=== PATIENT | female | born 1955 | race African-American/Black ===

== ENCOUNTER 2017-02-23 13:27 | Emergency (ER) | payer SELFPAY ==
[2017-02-23 14:38] LABS: POC GLUCOSE 91 mg/dL (70-99)
[2017-02-23 15:01] LABS: ADD MAN DIFF? NO
[2017-02-23 15:28] LABS: ANION GAP 8 (6-14); BLOOD UREA NITROGEN 15 mg/dL (7-20); BUN/CREATININE RATIO 19 (6-20); CALCIUM 9.3 mg/dL (8.5-10.1); CARBON DIOXIDE 31 mmol/L (21-32); CHLORIDE 105 mmol/L (98-107); CREATININE 0.8 mg/dL (0.6-1.0); GFR 88.2; GLUCOSE 101 mg/dL (70-99); POTASSIUM 3.5 mmol/L (3.5-5.1); SODIUM 144 mmol/L (136-145)
[2017-02-23 15:29] LABS: BASO % 1 % (0-3); EOS % 4 % (0-3); HEMATOCRIT 35.9 % (36.0-47.0); HEMOGLOBIN 11.3 g/dL (12.0-15.5); LYMPH # 2.3 x10^3/uL (1.0-4.8); LYMPH % 41 % (24-48); MEAN CORPUSCULAR HEMOGLOBIN 25 pg (25-35); MEAN CORPUSCULAR HGB CONC 32 g/dL (31-37); MEAN CORPUSCULAR VOLUME 80 fL (79-100); MONO % 8 % (0-9); NEUT % 47 % (31-73); PLATELET COUNT 340 x10^3/uL (140-400); RED BLOOD COUNT 4.49 x10^6/uL (3.50-5.40); RED CELL DISTRIBUTION WIDTH 14.4 % (11.5-14.5); WHITE BLOOD COUNT 5.7 x10^3/uL (4.0-11.0)
[2017-02-23 15:34] LABS: ALBUMIN 3.7 g/dL (3.4-5.0); ALBUMIN/GLOBULIN RATIO 0.9 (1.0-1.7); ALK PHOS 61 U/L (46-116); ALT (SGPT) 26 U/L (14-59); AST (SGOT) 29 U/L (15-37); TOTAL BILIRUBIN 0.1 mg/dL (0.2-1.0)
[2017-02-23 16:50] LABS: BILIRUBIN,URINE NEGATIVE (NEG); GLUCOSE,URINE NEGATIVE (NEG); NITRITE,URINE NEGATIVE (NEG); PH,URINE 6.5; PROTEIN,URINE NEGATIVE (NEG-TRACE)
[2017-02-23 17:02] LABS: BACTERIA,URINE MODERATE /HPF (0-FEW); RBC,URINE RARE /HPF (0-2); SQUAMOUS EPITHELIAL CELL,UR MOD /LPF; TRICHOMONAS,URINE PRESENT
[2017-02-23] MEDS: cloNIDine HCL 0.1 MG TABLET PO (17:53)
[2017-02-23] MEDS: metroNIDAZOLE 500 MG TABLET PO (17:53)
== END 2017-02-23 18:17 | disposition home or self-care (01) ==
LOC: ER 13:27
DX: I10 Essential (primary) hypertension (principal); A59.8 Trichomoniasis of other sites; M79.652 Pain in left thigh; M79.651 Pain in right thigh
CPT/HCPCS: 36415; 71020; 80053; 81001; 82962; 85025; 87086; 93005; 99285-25

== ENCOUNTER 2019-06-21 18:49 | Emergency (ER) | payer SELFPAY ==
[~2019-06-21] VITALS: Ht 162.6 cm; Wt 104.0 kg
[~2019-06-21 18:49] MED LIST: CLON0.1T PO
[2019-06-21 20:00] LABS: BASO % 1 % (0-3); EOS # 0.2 x10^3/uL (0.0-0.7); EOS % 4 % (0-3); HEMATOCRIT 39.5 % (36.0-47.0); HEMOGLOBIN 12.6 g/dL (12.0-15.5); LYMPH # 2.2 x10^3/uL (1.0-4.8); LYMPH % 38 % (24-48); MEAN CORPUSCULAR HEMOGLOBIN 26 pg (25-35); MEAN CORPUSCULAR HGB CONC 32 g/dL (31-37); MEAN CORPUSCULAR VOLUME 80 fL (79-100); MONO # 0.5 x10^3/uL (0.0-1.1); MONO % 9 % (0-9); NEUT # 2.8 x10^3/uL (1.8-7.7); NEUT % 49 % (31-73); PLATELET COUNT 326 x10^3/uL (140-400); RED BLOOD COUNT 4.93 x10^6/uL (3.50-5.40); RED CELL DISTRIBUTION WIDTH 14.2 % (11.5-14.5); WHITE BLOOD COUNT 5.8 x10^3/uL (4.0-11.0)
[2019-06-21] MEDS ORDERED: hydrALAZINE 20 MG/ML VIAL. IVP ONE ×2 (20:00→21:00)
--- NOTE | 2019-06-21 20:07 | EKG ---
[address] [place] [address] Test Date: 2019-06-21 Test Time: 19:43:50 Pat Name: JAYY MILLER Department: Room: Gender: F Legal Document Specialist: : 1955 Requested By: MELISA SALEEM Order Number: [id number] Reading MD: Brody Caldwell MD Measurements Intervals [place] Rate: 87 P: 62 AK: 182 QRS: -41 QRSD: 150 T: 138 QT: 386 QTc: 471 Interpretive Statements SINUS RHYTHM PROBABLE V-PACING Electronically Signed On 06-23-2019 13:25:00 CDT by Brody Caldwell MD
[2019-06-21 20:10] LABS: CALCIUM 9.7 mg/dL (8.5-10.1); CREATININE 0.8 mg/dL (0.6-1.0); GFR 87.7; POTASSIUM 3.6 mmol/L (3.5-5.1)
[2019-06-21 20:15] LABS: ALBUMIN 3.8 g/dL (3.4-5.0); ALBUMIN/GLOBULIN RATIO 0.8 (1.0-1.7); TOTAL BILIRUBIN 0.2 mg/dL (0.2-1.0); TOTAL PROTEIN 8.4 g/dL (6.4-8.2)
--- NOTE | 2019-06-21 20:47 | RAD ---
EXAM: CHEST 1 VIEW History: Dyspnea COMPARISON: 02/23/2017 TECHNIQUE: Single portable radiograph of the chest FINDINGS: The cardiac silhouette is unremarkable. The lungs are clear bilaterally. The costophrenic sulci are clear and well demarcated. IMPRESSION: No radiographic evidence of an acute cardiopulmonary process. Electronically signed by: Chase Burr MD (06/21/2019 8:44 PM) [id number]
--- NOTE | 2019-06-21 21:03 | PHYS DOC ---
Past Medical History Past Medical History: Hypertension Additional Past Medical Histor: FLUID RETENTION Smoking Status: Never Smoker Alcohol Use: None Drug Use: None General Adult EDM: Chief Complaint: SHORTNESS OF BREATH HPI: HPI: Patient is a 63 year old female who presents with complaint of shortness of breath for the last couple of days. Patient states that she has had numerous similar episodes in the past. She denies any cough or fever. She denies any chest pain. Patient states the shortness breath is worsened with exertion. She states that she has had no exposure to any known sick contacts. During previous similar episodes, no cause was found.[] Review of Systems: Review of Systems: Constitutional: Denies fever or chills. [] Respiratory: Denies cough but complains of shortness of breath. [] Cardiovascular: Denies chest pain or edema. [] GI: Denies abdominal pain, nausea, vomiting or diarrhea. [] Integument: Denies rash. [] Neurologic: Denies headache, focal weakness or sensory changes. [] A full 10 point review of systems has been reviewed and is otherwise negative. Heart Score: Risk Factors: Risk Factors: DM, Current or recent (<one month) smoker, HTN, HLP, family histo ry of CAD, obesity. Risk Scores: Score 0 - 3: 2.5% MACE over next 6 weeks - Discharge Home Score 4 - 6: 20.3% MACE over next 6 weeks - Admit for Clinical Observation Score 7 - 10: 72.7% MACE over next 6 weeks - Early Invasive Strategies Current Medications: Current Medications Medications (Trade) Dose Ordered Sig/Chani Start Time Stop Time Status Last Admin Dose Admin Hydralazine HCl (Apresoline Inj) 10 mg 1X ONCE 06/21/19 21:00 06/21/19 21:01 UNV Allergies: Allergies: Allergies Coded Allergies Type Severity Reaction Last Updated Verified lisinopril Allergy Unknown 02/23/17 Yes Physical Exam: PE: Constitutional: Well developed, well nourished, no acute distress, non-toxic appearance. [] HENT: Normocephalic, atraumatic, bilateral external ears normal, oropharynx moist, no oral exudates, nose normal. [] Eyes: PERRLA, EOMI, conjunctiva normal, no discharge. [] Neck: Normal range of motion, no tenderness, supple. [] Cardiovascular: Regular rate and rhythm[] Lungs & Thorax: Bilateral breath sounds clear to auscultation [] Abdomen: Bowel sounds normal, soft, no tenderness. [] Skin: Warm, dry, no erythema, no rash. [] Extremities: No tenderness, no cyanosis, no clubbing, ROM intact, no edema. [] Neurologic: Alert and oriented X 3, no focal deficits noted. [] Current Patient Data: Labs: Laboratory Tests Test 06/21/19 19:50 White Blood Count 5.8 x10^3/uL (4.0-11.0) Red Blood Count 4.93 x10^6/uL (3.50-5.40) Hemoglobin 12.6 g/dL (12.0-15.5) Hematocrit 39.5 % (36.0-47.0) Mean Corpuscular Volume 80 fL (79-100) Mean Corpuscular Hemoglobin 26 pg (25-35) Mean Corpuscular Hemoglobin Concent 32 g/dL (31-37) Red Cell Distribution Width 14.2 % (11.5-14.5) Platelet Count 326 x10^3/uL (140-400) Neutrophils (%) (Auto) 49 % (31-73) Lymphocytes (%) (Auto) 38 % (24-48) Monocytes (%) (Auto) 9 % (0-9) Eosinophils (%) (Auto) 4 % (0-3) H Basophils (%) (Auto) 1 % (0-3) Neutrophils # (Auto) 2.8 x10^3/uL (1.8-7.7) Lymphocytes # (Auto) 2.2 x10^3/uL (1.0-4.8) Monocytes # (Auto) 0.5 x10^3/uL (0.0-1.1) Eosinophils # (Auto) 0.2 x10^3/uL (0.0-0.7) Basophils # (Auto) 0.0 x10^3/uL (0.0-0.2) Sodium Level 145 mmol/L (136-145) Potassium Level 3.6 mmol/L (3.5-5.1) Chloride Level 102 mmol/L (98-107) Carbon Dioxide Level 31 mmol/L (21-32) Anion Gap 12 (6-14) Blood Urea Nitrogen 12 mg/dL (7-20) Creatinine 0.8 mg/dL (0.6-1.0) Estimated GFR (Cockcroft-Gault) 87.7 BUN/Creatinine Ratio 15 (6-20) Glucose Level 119 mg/dL (70-99) H Calcium Level 9.7 mg/dL (8.5-10.1) Total Bilirubin 0.2 mg/dL (0.2-1.0) Aspartate Amino Transferase (AST) 24 U/L (15-37) Alanine Aminotransferase (ALT) 29 U/L (14-59) Alkaline Phosphatase 62 U/L (46-116) Troponin I Quantitative < 0.017 ng/mL (0.000-0.055) UR-Giu-Y-Type Natriuretic Peptide 96 pg/mL (0-124) Total Protein 8.4 g/dL (6.4-8.2) H Albumin 3.8 g/dL (3.4-5.0) Albumin/Globulin Ratio 0.8 (1.0-1.7) L Laboratory Tests 06/21/19 19:50 Laboratory Tests 06/21/19 19:50 Vital Signs: Vital Signs Date Time Temp Pulse Resp B/P (MAP) Pulse Ox O2 Delivery O2 Flow Rate FiO2 06/21/19 20:04 81 244/114 06/21/19 19:28 98.8 16 96 Room Air 98.8 EKG: EKG: [] Radiology/Procedures: Radiology/Procedures: [] Impression: PROCEDURE: PORTABLE CHEST 1V EXAM: CHEST 1 VIEW History: Dyspnea COMPARISON: 02/23/2017 TECHNIQUE: Single portable radiograph of the chest FINDINGS: The cardiac silhouette is unremarkable. The lungs are clear bilaterally. The costophrenic sulci are clear and well demarcated. IMPRESSION: No radiographic evidence of an acute cardiopulmonary process. Electronically signed by: Chase Burr MD (06/21/2019 8:44 PM) [id number] Course & Med Decision Making: Course & Med Decision Making Pertinent Labs and Imaging studies reviewed. (See chart for details) [] Dragon Disclaimer: Dragon Disclaimer: This electronic medical record was generated, in whole or in part, using a voice recognition dictation system. Departure Departure Impression: Primary Impression: SOB (shortness of breath) Additional Impressions: Hypertension Qualified Codes: I10 - Essential (primary) hypertension Anxiety Disposition: HOME, SELF-CARE Condition: STABLE Referrals: UNKNOWN PCP NAME (PCP) Patient Instructions: Shortness of Breath Scripts Clonazepam (CLONAZEPAM ) 0.5 Mg Tablet 0.5 MG PO BID PRN for ANXIETY, #10 TAB Prov: MELISA SALEEM Jr. DO 06/21/19 Benazepril Hcl (LOTENSIN) 20 Mg Tablet 1 TAB PO DAILY for 30 Days, #30 TAB 0 Refills Prov: MELISA SALEEM Jr. DO 06/21/19 MELISA SALEEM Jr. DO Jun 21, 2019 21:03
[2019-06-21] MEDS ORDERED: BENA20TA16 PO (21:24)
[2019-06-21] MEDS ORDERED: CLON-77 PO (21:24)
[2019-06-21 21:25] VITALS: BP 177/74
== END 2019-06-21 21:44 | disposition home or self-care (01) ==
LOC: ER 18:49
DX: R06.02 Shortness of breath (principal); I10 Essential (primary) hypertension; F41.9 Anxiety disorder, unspecified; Z88.6 Allergy status to analgesic agent
CPT/HCPCS: 36415; 71045; 80053; 83880; 84484; 85025; 93005; 96374; 96376; 99285; J0360

== ENCOUNTER 2019-12-12 01:45 | Observation (INO) | payer OTHER ==
[~2019-12-12] VITALS: Ht 157.5 cm; Wt 104.5 kg
[~2019-12-12 01:45] MED LIST changes: +BENA20TA16 PO; +CLON-77 PO
--- NOTE | 2019-12-12 02:09 | PHYS DOC ---
Past Medical History Past Medical History: Hypertension Additional Past Medical Histor: FLUID RETENTION Smoking Status: Never Smoker Alcohol Use: None Drug Use: None General Adult EDM: Chief Complaint: ABDOMINAL PAIN HPI: HPI: Patient is a 64 year old female who presents with a one-day history of left flank pain. Patient began having left flank pain yesterday and has radiated to the left lower quadrant. Patient describes pain as a stabbing pain that is currently 10 out of 10. Patient states is worse with certain movements of the body. Patient had one episode of vomiting. Patient denies any fevers, chills, cough. Review of Systems: Review of Systems: Constitutional: Denies fever or chills. [] Eyes: Denies change in visual acuity. [] HENT: Denies nasal congestion or sore throat. [] Respiratory: Denies cough or shortness of breath. [] Cardiovascular: Denies chest pain or edema. [] GI: Complains of abdominal pain with nausea and vomiting. : Denies dysuria. [] Musculoskeletal: Complains of back pain but no joint pain. [] Integument: Denies rash. [] Neurologic: Complains of headache but no focal weakness or sensory changes. [] Endocrine: Denies polyuria or polydipsia. [] Lymphatic: Denies swollen glands. [] Psychiatric: Denies depression or anxiety. [] Heart Score: Risk Factors: Risk Factors: DM, Current or recent (<one month) smoker, HTN, HLP, family history of CAD, obesity. Risk Scores: Score 0 - 3: 2.5% MACE over next 6 weeks - Discharge Home Score 4 - 6: 20.3% MACE over next 6 weeks - Admit for Clinical Observation Score 7 - 10: 72.7% MACE over next 6 weeks - Early Invasive Strategies Current Medications: Current Medications Ketorolac Tromethamine (Toradol 15mg Vial) 15 mg 1X ONCE IVP Last administered on 12/12/19at 02:33; Start 12/12/19 at 02:15; Stop 12/12/19 at 02:40; Status DC Ondansetron HCl (Zofran) 4 mg 1X ONCE IVP Last administered on 12/12/19at 02:32; Start 12/12/19 at 02:15; Stop 12/12/19 at 02:40; Status DC Morphine Sulfate (Morphine Sulfate) 4 mg 1X ONCE IV Last administered on 12/12/19at 02:33; Start 12/12/19 at 02:15; Stop 12/12/19 at 02:40; Status DC Labetalol HCl (Normodyne Iv Push) 20 mg 1X ONCE IVP Last administered on 12/12/19at 03:43; Start 12/12/19 at 03:15; Stop 12/12/19 at 03:16; Status DC Sodium Chloride 500 ml @ 500 mls/hr 1X ONCE IV Last administered on 12/12/19at 03:50; Start 12/12/19 at 03:30; Stop 12/12/19 at 04:29; Status DC Morphine Sulfate (Morphine Sulfate) 4 mg 1X ONCE IV ; Start 12/12/19 at 04:45; Stop 12/12/19 at 04:46; Status DC Active Scripts Active Clonazepam (Clonazepam) 0.5 Mg Tablet 0.5 Mg PO BID PRN Lotensin (Benazepril Hcl) 20 Mg Tablet 1 Tab PO DAILY 30 Days Clonidine Hcl 0.1 Mg Tablet 1 Tab PO QHS Allergies: Allergies: Allergies Coded Allergies Type Severity Reaction Last Updated Verified lisinopril Allergy Unknown 02/23/17 Yes Physical Exam: PE: Constitutional: Well developed, well nourished, no acute distress, non-toxic appearance. [] HENT: Normocephalic, atraumatic, bilateral external ears normal, oropharynx moist, no oral exudates, nose normal. [] Eyes: PERRLA, EOMI, conjunctiva normal, no discharge. [] Neck: Normal range of motion, no tenderness, supple, no stridor. [] No meningeal signs Cardiovascular:Heart rate regular rhythm, no murmur [] Lungs & Thorax: Bilateral breath sounds clear to auscultation [] Abdomen: Bowel sounds normal, soft, no tenderness, no masses, no pulsatile masses. [] Skin: Warm, dry, no erythema, no rash. [] Back: No tenderness, no CVA tenderness. [] Extremities: No tenderness, no cyanosis, no clubbing, ROM intact, no edema. [] Neurologic: Alert and oriented X 3, normal motor function, normal sensory function, no focal deficits noted. [] Psychologic: Affect normal, judgement normal, mood normal. [] Current Patient Data: Labs: Laboratory Tests Test 12/12/19 02:05 12/12/19 04:19 White Blood Count 7.7 x10^3/uL Red Blood Count 4.80 x10^6/uL Hemoglobin 12.5 g/dL Hematocrit 37.9 % Mean Corpuscular Volume 79 fL Mean Corpuscular Hemoglobin 26 pg Mean Corpuscular Hemoglobin Concent 33 g/dL Red Cell Distribution Width 13.5 % Platelet Count 319 x10^3/uL Neutrophils (%) (Auto) 72 % Lymphocytes (%) (Auto) 21 % Monocytes (%) (Auto) 6 % Eosinophils (%) (Auto) 0 % Basophils (%) (Auto) 1 % Neutrophils # (Auto) 5.5 x10^3/uL Lymphocytes # (Auto) 1.6 x10^3/uL Monocytes # (Auto) 0.4 x10^3/uL Eosinophils # (Auto) 0.0 x10^3/uL Basophils # (Auto) 0.1 x10^3/uL Sodium Level 136 mmol/L Potassium Level 3.6 mmol/L Chloride Level 99 mmol/L Carbon Dioxide Level 29 mmol/L Anion Gap 8 Blood Urea Nitrogen 8 mg/dL Creatinine 0.7 mg/dL Estimated GFR (Cockcroft-Gault) 101.9 BUN/Creatinine Ratio 11 Glucose Level 147 mg/dL Calcium Level 10.2 mg/dL Total Bilirubin 0.4 mg/dL Aspartate Amino Transf (AST/SGOT) 25 U/L Alanine Aminotransferase (ALT/SGPT) 28 U/L Alkaline Phosphatase 79 U/L Total Protein 9.1 g/dL Albumin 4.0 g/dL Albumin/Globulin Ratio 0.8 Lipase 61 U/L Urine Collection Type Unknown Urine Color Yellow Urine Clarity Clear Urine pH 7.0 Urine Specific [place] 1.020 Urine Protein 100 mg/dL Urine Glucose (UA) Negative mg/dL Urine Ketones (Stick) 15 mg/dL Urine Blood Negative Urine Nitrite Negative Urine Bilirubin Negative Urine Urobilinogen Dipstick 1.0 mg/dL Urine Leukocyte Esterase Trace Urine RBC 1-2 /HPF Urine WBC 1-4 /HPF Urine Squamous Epithelial Cells Mod /LPF Urine Bacteria Few /HPF Urine Mucus Marked /LPF Current Medications Medications (Trade) Dose Ordered Sig/Chani Route PRN Reason Start Time Stop Time Status Last Admin Dose Admin Ketorolac Tromethamine (Toradol 15mg Vial) 15 mg 1X ONCE IVP 12/12/19 02:15 12/12/19 02:40 DC 12/12/19 02:33 Ondansetron HCl (Zofran) 4 mg 1X ONCE IVP 12/12/19 02:15 12/12/19 02:40 DC 12/12/19 02:32 Morphine Sulfate (Morphine Sulfate) 4 mg 1X ONCE IV 12/12/19 02:15 12/12/19 02:40 DC 12/12/19 02:33 Labetalol HCl (Normodyne Iv Push) 20 mg 1X ONCE IVP 12/12/19 03:15 12/12/19 03:16 DC 12/12/19 03:43 Sodium Chloride 500 ml @ 500 mls/hr 1X ONCE IV 12/12/19 03:30 12/12/19 04:29 DC 12/12/19 03:50 Morphine Sulfate (Morphine Sulfate) 4 mg 1X ONCE IV 12/12/19 04:45 12/12/19 04:46 DC Vital Signs: Vital Signs Date Time Temp Pulse Resp B/P (MAP) Pulse Ox O2 Delivery O2 Flow Rate FiO2 12/12/19 03:43 82 190/87 12/12/19 02:33 98 Room Air 12/12/19 01:57 98.3 97 24 230/107 (148) 95 Room Air 98.3 EKG: EKG: [] EKG interpreted by me normal sinus rhythm rate 89 left axis deviation left bundle branch block, nonspecific ST changes Radiology/Procedures: Radiology/Procedures: [][facility] [address] [place] [address] IMAGING REPORT Signed PATIENT: JYAY MILLER ACCOUNT: [id number] : 1955 LOCATION: ER AGE: 64 SEX: F EXAM STATUS: REG ER ORD. PHYSICIAN: JAMAL NEAL MD REASON: LEFT FLANK PAIN, R/O STONE PROCEDURE: CT ABDOMEN PELVIS WO CONTRAST Exam: CT abdomen/pelvis without intravenous contrast Indication: Left flank pain, rule out stone Comparison: None Technique: Helical CT imaging performed of the abdomen and pelvis without the use of intravenous contrast. Sagittal and coronal reformats were obtained. One or more of the following individualized dose reduction techniques were utilized for this examination: 1. Automated exposure control 2. Adjustment of the mA and/or kV according to patient size 3. Use of iterative reconstruction technique. Findings: Inherently limited evaluation without intravenous contrast. Lower chest: Mild atelectasis in the posterior medial right lower lobe. Heart is normal in size. Liver: Normal. Gallbladder/Biliary Tree: Normal. Pancreas: Normal. Spleen: Normal. Adrenal Glands: Normal. Kidneys/Ureters/Bladder: Kidneys are normal in size. No hydronephrosis or nephrolithiasis. Ureters and bladder are normal. A few small calcifications in the pelvis are favored to be phleboliths. Reproductive Organs: There are several calcified fibroids in the uterus. No adnexal mass. Stomach, small bowel, and colon: The stomach, small bowel, and colon are normal. Appendix is normal. Vasculature: No abdominal aortic aneurysm. Minimal calcified atherosclerosis. Lymph Nodes: No lymphadenopathy. Peritoneum and retroperitoneum: No free fluid or free air. Bones: There is severe facet arthrosis in the lumbar spine, greatest at L3-L4 through L5-S1. Moderate osteoarthrosis of the hips. Impression: 1. No urolithiasis or hydronephrosis. 2. Probable calcified fibroids in the uterus. 3. Severe lumbar facet arthrosis. Electronically signed by: Lupe Bearden MD (12/12/2019 2:51 AM) [id number] DICTATED and SIGNED BY: LUPE BEARDEN MD DATE: 12/12/19 0251 Course & Med Decision Making: Course & Med Decision Making Pertinent Labs and Imaging studies reviewed. (See chart for details) [] Patient reassessed multiple times last time at 4:52 AM patient says pain is really not significantly changed. Patient has some tenderness with deep palpation. Her work-up is relatively reassuring. But due to persistent pain I will put her in observation to Dr. Mcrae. Place a consult with GI as well. Laly Disclaimer: Laly Disclaimer: This electronic medical record was generated, in whole or in part, using a voice recognition dictation system. Departure Departure Impression: Primary Impression: Abdominal pain Additional Impression: Accelerated hypertension Disposition: 09 ADMITTED INPT THIS HOSP Admitting Physician: RODO (lary) Condition: STABLE Referrals: CHANDAN HANKS MD (PCP) JAMAL NEAL MD Dec 12, 2019 02:09
[2019-12-12] MEDS ORDERED: KETOROLAC 15 MG/ML VIAL. IVP ONE (02:15)
[2019-12-12] MEDS ORDERED: ONDANSETRON PF 4 MG/2 ML VIAL. IVP ONE (02:15)
[2019-12-12] MEDS ORDERED: MORPHINE SULFATE 4 MG/ML VIAL. IV ONE ×2 (02:15→04:45)
[2019-12-12 02:19] LABS: BASO # 0.1 x10^3/uL (0.0-0.2); BASO % 1 % (0-3); EOS % 0 % (0-3); HEMATOCRIT 37.9 % (36.0-47.0); HEMOGLOBIN 12.5 g/dL (12.0-15.5); LYMPH # 1.6 x10^3/uL (1.0-4.8); LYMPH % 21 % (24-48); MEAN CORPUSCULAR HEMOGLOBIN 26 pg (25-35); MEAN CORPUSCULAR HGB CONC 33 g/dL (31-37); MEAN CORPUSCULAR VOLUME 79 fL (79-100); MONO # 0.4 x10^3/uL (0.0-1.1); MONO % 6 % (0-9); NEUT # 5.5 x10^3/uL (1.8-7.7); NEUT % 72 % (31-73); PLATELET COUNT 319 x10^3/uL (140-400); RED CELL DISTRIBUTION WIDTH 13.5 % (11.5-14.5); WHITE BLOOD COUNT 7.7 x10^3/uL (4.0-11.0)
[2019-12-12 02:27] LABS: CALCIUM 10.2 mg/dL (8.5-10.1); CREATININE 0.7 mg/dL (0.6-1.0); GFR 101.9; POTASSIUM 3.6 mmol/L (3.5-5.1)
[2019-12-12 02:33] LABS: ALBUMIN/GLOBULIN RATIO 0.8 (1.0-1.7); TOTAL BILIRUBIN 0.4 mg/dL (0.2-1.0); TOTAL PROTEIN 9.1 g/dL (6.4-8.2)
--- NOTE | 2019-12-12 02:54 | RAD ---
Exam: CT abdomen/pelvis without intravenous contrast Indication: Left flank pain, rule out stone Comparison: None Technique: Helical CT imaging performed of the abdomen and pelvis without the use of intravenous contrast. Sagittal and coronal reformats were obtained. One or more of the following individualized dose reduction techniques were utilized for this examination: 1. Automated exposure control 2. Adjustment of the mA and/or kV according to patient size 3. Use of iterative reconstruction technique. Findings: Inherently limited evaluation without intravenous contrast. Lower chest: Mild atelectasis in the posterior medial right lower lobe. Heart is normal in size. Liver: Normal. Gallbladder/Biliary Tree: Normal. Pancreas: Normal. Spleen: Normal. Adrenal Glands: Normal. Kidneys/Ureters/Bladder: Kidneys are normal in size. No hydronephrosis or nephrolithiasis. Ureters and bladder are normal. A few small calcifications in the pelvis are favored to be phleboliths. Reproductive Organs: There are several calcified fibroids in the uterus. No adnexal mass. Stomach, small bowel, and colon: The stomach, small bowel, and colon are normal. Appendix is normal. Vasculature: No abdominal aortic aneurysm. Minimal calcified atherosclerosis. Lymph Nodes: No lymphadenopathy. Peritoneum and retroperitoneum: No free fluid or free air. Bones: There is severe facet arthrosis in the lumbar spine, greatest at L3-L4 through L5-S1. Moderate osteoarthrosis of the hips. Impression: 1. No urolithiasis or hydronephrosis. 2. Probable calcified fibroids in the uterus. 3. Severe lumbar facet arthrosis. Electronically signed by: Lupe Bearden MD (12/12/2019 2:51 AM) [id number]
[2019-12-12] MEDS ORDERED: LABETALOL 20 MG/4 ML DISP.SYRIN. IVP ONE (03:15)
[2019-12-12] MEDS ORDERED: IV NORMAL SALINE 500ML BAG 500 ML IV ONE (03:30)
[2019-12-12 04:27] LABS: BILIRUBIN,URINE NEGATIVE (NEG); CLARITY,URINE CLEAR; COLOR,URINE YELLOW; NITRITE,URINE NEGATIVE (NEG); PROTEIN,URINE 100 mg/dL (NEG-TRACE)
[2019-12-12 04:32] LABS: BACTERIA,URINE FEW /HPF (0-FEW)
--- NOTE | 2019-12-12 04:34 | EKG ---
[facility] [address] [place] [address] Test Date: 2019-12-12 Test Time: 02:43:02 Pat Name: JAYY MILLER Department: Room: Gender: F Tonsorial Artist: : 1955 Requested By: JAMAL NEAL Order Number: [id number] Reading MD: Measurements Intervals [place] Rate: 89 P: 52 ME: 180 QRS: -38 QRSD: 166 T: 114 QT: 406 QTc: 495 Interpretive Statements SINUS RHYTHM LEFT ATRIAL ABNORMALITY ABNORMAL LEFT AXIS DEVIATION NON SPECIFIC INTRAVENTRICULAR BLOCK QRS(T) CONTOUR ABNORMALITY CONSISTENT WITH SEPTAL INFARCT POSSIBLY RECENT ABNORMAL ECG RI6.01 No previous ECG available for comparison
[2019-12-12] MEDS ORDERED: LIDO:MAALOX 1:1 20 ML SINGLE DOSE. SWSW ONE (05:00)
[2019-12-12] MEDS ORDERED: MORPHINE SULFATE 2 MG/ML VIAL. IV PRN ×3 (05:00→08:30)
[2019-12-12] MEDS ORDERED: ONDANSETRON PF 4 MG/2 ML VIAL. IV PRN (05:00)
[2019-12-12] MEDS: IV NORMAL SALINE 1000ML BAG 1,000 ML IV SCH ×2 (07:25→13:00)
[2019-12-12] MEDS ORDERED: MAGNESIUM HYDROXIDE 2,400 MG/30 ML ORAL.SUSP. PO PRN (08:30)
[2019-12-12] MEDS ORDERED: HYDROmorphone 2 MG/ML VIAL IV PRN ×2 (08:30)
[2019-12-12] MEDS ORDERED: PROCHLORPERAZINE 25 MG SUPP.RECT. PR PRN (08:30)
[2019-12-12] MEDS ORDERED: BISACODYL 10 MG SUPP.RECT. PR PRN (08:30)
[2019-12-12] MEDS ORDERED: ONDANSETRON PF 4 MG/2 ML VIAL. IVP PRN (08:30)
[2019-12-12] MEDS ORDERED: ACETAMINOPHEN 325 MG TABLET. PO PRN (08:30)
[2019-12-12] MEDS ORDERED: CALCIUM CARBONATE 500 MG TAB.CHEW PO PRN (08:30)
[2019-12-12] MEDS ORDERED: MAG HYDROX/ALUMINUM HYD/SIMETH 30 ML ORAL.SUSP PO PRN (08:30)
--- NOTE | 2019-12-12 08:34 | PDOC1 ---
History and Physical Date of Admission Date of Admission DATE: 12/12/19 TIME: 08:11 History of Present Illness History of Present Illness Patient is a 64-year-old female with past medical history of hypertension, who presents to the ED with complaints of worsening left-sided abdominal pain for the past week. She reports pain 10/10, that awoke her from sleep. She admits to some associated headache, photophobia, nausea and vomiting x1. CT abdomen pelvis which largely unremarkable except for some calcified uterine fibroids, no nephrolithiasis. Upon arrival in the ED her blood pressure was 230/107. She was treated with IV labetalol, pain medication, and GI cocktail with [facility]. She was admitted to observation for further management Past Medical History Past Medical History Hypertension Current Problem List Problem List Problems Medical Problems: (1) Abdominal pain Status: Acute (2) Accelerated hypertension Status: Acute Current Medications Current Medications Current Medications Ketorolac Tromethamine (Toradol 15mg Vial) 15 mg 1X ONCE IVP Last administered on 12/12/19at 02:33; Start 12/12/19 at 02:15; Stop 12/12/19 at 02:40; Status DC Ondansetron HCl (Zofran) 4 mg 1X ONCE IVP Last administered on 12/12/19at 02:32; Start 12/12/19 at 02:15; Stop 12/12/19 at 02:40; Status DC Morphine Sulfate (Morphine Sulfate) 4 mg 1X ONCE IV Last administered on 12/12/19at 02:33; Start 12/12/19 at 02:15; Stop 12/12/19 at 02:40; Status DC Labetalol HCl (Normodyne Iv Push) 20 mg 1X ONCE IVP Last administered on 12/12/19at 03:43; Start 12/12/19 at 03:15; Stop 12/12/19 at 03:16; Status DC Sodium Chloride 500 ml @ 500 mls/hr 1X ONCE IV Last administered on 12/12/19at 03:50; Start 12/12/19 at 03:30; Stop 12/12/19 at 04:29; Status DC Morphine Sulfate (Morphine Sulfate) 4 mg 1X ONCE IV Last administered on 12/12/19at 04:57; Start 12/12/19 at 04:45; Stop 12/12/19 at 04:46; Status DC Multi-Ingredient Mouthwash/Gargle (Gi Cocktail) 20 ml 1X ONCE SWSW Last administered on 12/12/19at 04:58; Start 12/12/19 at 05:00; Stop 12/12/19 at 05:23; Status DC Ondansetron HCl (Zofran) 4 mg PRN Q8HRS PRN IV NAUSEA/VOMITING; Start 12/12/19 at 05:00; Stop 12/13/19 at 04:59 Morphine Sulfate (Morphine Sulfate) 2 mg PRN Q2HR PRN IV PAIN; Start 12/12/19 at 05:00; Stop 12/13/19 at 04:59 Sodium Chloride 1,000 ml @ 125 mls/hr Q8H IV Last administered on 12/12/19at 07:25; Start 12/12/19 at 05:00; Stop 12/13/19 at 04:59 Active Scripts Active Clonazepam (Clonazepam) 0.5 Mg Tablet 0.5 Mg PO BID PRN Lotensin (Benazepril Hcl) 20 Mg Tablet 1 Tab PO DAILY 30 Days Clonidine Hcl 0.1 Mg Tablet 1 Tab PO QHS Allergies Allergies: Coded Allergies: lisinopril (Verified Allergy, Unknown, 02/23/17) ROS Review of System GENERAL: No history of weight change, weakness or fevers. SKIN: No bruising, hair changes or rashes. EYES: No blurred, double or loss of vision. NOSE AND THROAT: No history of nosebleeds, hoarseness or sore throat. HEART: Denies chest pain, denies palpitations. LUNGS: Denies cough, hemoptysis, wheezing or shortness of breath. GASTROINTESTINAL: Left abdominal pain. Denies nausea, vomiting. GENITOURINARY: Denies dysuria, frequency, urgency, hematuria. NEUROLOGIC: Denies history of numbness, tingling, tremor or weakness. PSYCHIATRIC: Denies anxiety, denies depression. ENDOCRINE: No history of heat or cold intolerance, polyuria or polydipsia. EXTREMITIES: Denies muscle weakness, joint pain, pain on walking or stiffness. Physical Exam Physical Exam General: Alert, Oriented X3, Cooperative, No acute distress HEENT: PERRLA, EOMI Lungs: Clear to auscultation, Normal air movement Heart: RRR, no murmurs Cardiovascular: S1, S2 Abdomen: Normal bowel sounds, Soft, No tenderness Extremities: No clubbing, No cyanosis Skin: No rashes, No significant lesion Neuro: Normal speech, Normal tone, Sensation intact Psych/Mental Status: Mental status NL, Mood NL Vitals Vitals Vital Signs Date Time Temp Pulse Resp B/P (MAP) Pulse Ox O2 Delivery O2 Flow Rate FiO2 12/12/19 06:57 68 151/69 (96) 97 Room Air 12/12/19 01:57 98.3 24 98.3 Labs Labs Laboratory Tests Test 12/12/19 02:05 12/12/19 04:19 White Blood Count 7.7 x10^3/uL (4.0-11.0) Red Blood Count 4.80 x10^6/uL (3.50-5.40) Hemoglobin 12.5 g/dL (12.0-15.5) Hematocrit 37.9 % (36.0-47.0) Mean Corpuscular Volume 79 fL (79-100) Mean Corpuscular Hemoglobin 26 pg (25-35) Mean Corpuscular Hemoglobin Concent 33 g/dL (31-37) Red Cell Distribution Width 13.5 % (11.5-14.5) Platelet Count 319 x10^3/uL (140-400) Neutrophils (%) (Auto) 72 % (31-73) Lymphocytes (%) (Auto) 21 % (24-48) Monocytes (%) (Auto) 6 % (0-9) Eosinophils (%) (Auto) 0 % (0-3) Basophils (%) (Auto) 1 % (0-3) Neutrophils # (Auto) 5.5 x10^3/uL (1.8-7.7) Lymphocytes # (Auto) 1.6 x10^3/uL (1.0-4.8) Monocytes # (Auto) 0.4 x10^3/uL (0.0-1.1) Eosinophils # (Auto) 0.0 x10^3/uL (0.0-0.7) Basophils # (Auto) 0.1 x10^3/uL (0.0-0.2) Sodium Level 136 mmol/L (136-145) Potassium Level 3.6 mmol/L (3.5-5.1) Chloride Level 99 mmol/L (98-107) Carbon Dioxide Level 29 mmol/L (21-32) Anion Gap 8 (6-14) Blood Urea Nitrogen 8 mg/dL (7-20) Creatinine 0.7 mg/dL (0.6-1.0) Estimated GFR (Cockcroft-Gault) 101.9 BUN/Creatinine Ratio 11 (6-20) Glucose Level 147 mg/dL (70-99) Calcium Level 10.2 mg/dL (8.5-10.1) Total Bilirubin 0.4 mg/dL (0.2-1.0) Aspartate Amino Transf (AST/SGOT) 25 U/L (15-37) Alanine Aminotransferase (ALT/SGPT) 28 U/L (14-59) Alkaline Phosphatase 79 U/L (46-116) Total Protein 9.1 g/dL (6.4-8.2) Albumin 4.0 g/dL (3.4-5.0) Albumin/Globulin Ratio 0.8 (1.0-1.7) Lipase 61 U/L (73-393) Urine Collection Type Unknown Urine Color Yellow Urine Clarity Clear Urine pH 7.0 (<5.0-8.0) Urine Specific [place] 1.020 (1.000-1.030) Urine Protein 100 mg/dL (NEG-TRACE) Urine Glucose (UA) Negative mg/dL (NEG) Urine Ketones (Stick) 15 mg/dL (NEG) Urine Blood Negative (NEG) Urine Nitrite Negative (NEG) Urine Bilirubin Negative (NEG) Urine Urobilinogen Dipstick 1.0 mg/dL (0.2 mg/dL) Urine Leukocyte Esterase Trace (NEG) Urine RBC 1-2 /HPF (0-2) Urine WBC 1-4 /HPF (0-4) Urine Squamous Epithelial Cells Mod /LPF Urine Bacteria Few /HPF (0-FEW) Urine Mucus Marked /LPF Laboratory Tests Test 12/12/19 02:05 12/12/19 04:19 White Blood Count 7.7 x10^3/uL (4.0-11.0) Red Blood Count 4.80 x10^6/uL (3.50-5.40) Hemoglobin 12.5 g/dL (12.0-15.5) Hematocrit 37.9 % (36.0-47.0) Mean Corpuscular Volume 79 fL (79-100) Mean Corpuscular Hemoglobin 26 pg (25-35) Mean Corpuscular Hemoglobin Concent 33 g/dL (31-37) Red Cell Distribution Width 13.5 % (11.5-14.5) Platelet Count 319 x10^3/uL (140-400) Neutrophils (%) (Auto) 72 % (31-73) Lymphocytes (%) (Auto) 21 % (24-48) Monocytes (%) (Auto) 6 % (0-9) Eosinophils (%) (Auto) 0 % (0-3) Basophils (%) (Auto) 1 % (0-3) Neutrophils # (Auto) 5.5 x10^3/uL (1.8-7.7) Lymphocytes # (Auto) 1.6 x10^3/uL (1.0-4.8) Monocytes # (Auto) 0.4 x10^3/uL (0.0-1.1) Eosinophils # (Auto) 0.0 x10^3/uL (0.0-0.7) Basophils # (Auto) 0.1 x10^3/uL (0.0-0.2) Sodium Level 136 mmol/L (136-145) Potassium Level 3.6 mmol/L (3.5-5.1) Chloride Level 99 mmol/L (98-107) Carbon Dioxide Level 29 mmol/L (21-32) Anion Gap 8 (6-14) Blood Urea Nitrogen 8 mg/dL (7-20) Creatinine 0.7 mg/dL (0.6-1.0) Estimated GFR (Cockcroft-Gault) 101.9 BUN/Creatinine Ratio 11 (6-20) Glucose Level 147 mg/dL (70-99) Calcium Level 10.2 mg/dL (8.5-10.1) Total Bilirubin 0.4 mg/dL (0.2-1.0) Aspartate Amino Transf (AST/SGOT) 25 U/L (15-37) Alanine Aminotransferase (ALT/SGPT) 28 U/L (14-59) Alkaline Phosphatase 79 U/L (46-116) Total Protein 9.1 g/dL (6.4-8.2) Albumin 4.0 g/dL (3.4-5.0) Albumin/Globulin Ratio 0.8 (1.0-1.7) Lipase 61 U/L (73-393) Urine Collection Type Unknown Urine Color Yellow Urine Clarity Clear Urine pH 7.0 (<5.0-8.0) Urine Specific [place] 1.020 (1.000-1.030) Urine Protein 100 mg/dL (NEG-TRACE) Urine Glucose (UA) Negative mg/dL (NEG) Urine Ketones (Stick) 15 mg/dL (NEG) Urine Blood Negative (NEG) Urine Nitrite Negative (NEG) Urine Bilirubin Negative (NEG) Urine Urobilinogen Dipstick 1.0 mg/dL (0.2 mg/dL) Urine Leukocyte Esterase Trace (NEG) Urine RBC 1-2 /HPF (0-2) Urine WBC 1-4 /HPF (0-4) Urine Squamous Epithelial Cells Mod /LPF Urine Bacteria Few /HPF (0-FEW) Urine Mucus Marked /LPF VTE Prophylaxis Ordered VTE Prophylaxis Devices: Yes VTE Pharmacological Prophylaxi: No Assessment/Plan Assessment/Plan Intractable abdominal pain Hypertensive urgency Plan: Patient's pain improved with IV medication and GI cocktail Blood pressure controlled with IV labetalol, will resume home medications CT abdomen pelvis unremarkable except for calcified fibroids Will likely discharge today and recommend outpatient follow-up FEN - Cardiac diet PPX -SCDs FULL CODE Dispo -observation for above Justifications for Admission Other Justification CHERI MARIO MD Dec 12, 2019 08:34
[2019-12-12] MEDS ORDERED: clonazePAM 0.5 MG TABLET PO PRN (08:45)
[2019-12-12] MEDS ORDERED: BENAZEPRIL HCL PO SCH (09:00)
--- NOTE | 2019-12-12 09:53 | PDOC2 ---
GI CONSULT Date of Service: DATE: 12/12/19 TIME: 09:46 Reason For Consult: abd pain HPI: HPI: Pleasant 64 y/o female seen in ER. Awoke w/ left side pain w/ some radiation to mid left abdomen yesterday. "Pressure." Fairly constant but felt better in position. 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 Associated w/ n/v after drinking cold water x 1. Noted w/ significant HTN in ER. Occasional heartburn treated w/ Tums PRN. No dysphagia, hematemesis, chronic abd pain, diarrhea, constipation, hematochezia, or melena. Decreased appetite w/ age - "I'm just a light eater" - no weight loss. Pain unchanged w/ eating and stooling. EGD and colonoscopy "on [address]" in 05/2019 were reportedly normal. No GB, liver, pancreas, or PUD history. Daily ASA, Excedrin PRN for headaches. 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 PMH: PMH: HTN FH: Family History: Other (mother - heart disease) Social History: Smoke: No ALCOHOL: none Drugs: None ROS: GEN: Denies fevers, chills, sweats HEENT: +photophobia CV: Denies chest pain RESP: Denies shortness of air, cough GI: Per HPI : Denies hematuria, dysuria ENDO: Denies weight changes NEURO: +headache MSK: Denies weakness, joint pain/swelling SKIN: Denies jaundice, pruritus Vitals: Vitals: Vital Signs Date Time Temp Pulse Resp B/P (MAP) Pulse Ox O2 Delivery O2 Flow Rate FiO2 12/12/19 06:57 68 151/69 (96) 97 Room Air 12/12/19 01:57 98.3 24 98.3 Labs: Labs: Laboratory Tests Test 12/12/19 02:05 12/12/19 04:19 White Blood Count 7.7 x10^3/uL (4.0-11.0) Red Blood Count 4.80 x10^6/uL (3.50-5.40) Hemoglobin 12.5 g/dL (12.0-15.5) Hematocrit 37.9 % (36.0-47.0) Mean Corpuscular Volume 79 fL (79-100) Mean Corpuscular Hemoglobin 26 pg (25-35) Mean Corpuscular Hemoglobin Concent 33 g/dL (31-37) Red Cell Distribution Width 13.5 % (11.5-14.5) Platelet Count 319 x10^3/uL (140-400) Neutrophils (%) (Auto) 72 % (31-73) Lymphocytes (%) (Auto) 21 % (24-48) Monocytes (%) (Auto) 6 % (0-9) Eosinophils (%) (Auto) 0 % (0-3) Basophils (%) (Auto) 1 % (0-3) Neutrophils # (Auto) 5.5 x10^3/uL (1.8-7.7) Lymphocytes # (Auto) 1.6 x10^3/uL (1.0-4.8) Monocytes # (Auto) 0.4 x10^3/uL (0.0-1.1) Eosinophils # (Auto) 0.0 x10^3/uL (0.0-0.7) Basophils # (Auto) 0.1 x10^3/uL (0.0-0.2) Sodium Level 136 mmol/L (136-145) Potassium Level 3.6 mmol/L (3.5-5.1) Chloride Level 99 mmol/L (98-107) Carbon Dioxide Level 29 mmol/L (21-32) Anion Gap 8 (6-14) Blood Urea Nitrogen 8 mg/dL (7-20) Creatinine 0.7 mg/dL (0.6-1.0) Estimated GFR (Cockcroft-Gault) 101.9 BUN/Creatinine Ratio 11 (6-20) Glucose Level 147 mg/dL (70-99) Calcium Level 10.2 mg/dL (8.5-10.1) Total Bilirubin 0.4 mg/dL (0.2-1.0) Aspartate Amino Transf (AST/SGOT) 25 U/L (15-37) Alanine Aminotransferase (ALT/SGPT) 28 U/L (14-59) Alkaline Phosphatase 79 U/L (46-116) Total Protein 9.1 g/dL (6.4-8.2) Albumin 4.0 g/dL (3.4-5.0) Albumin/Globulin Ratio 0.8 (1.0-1.7) Lipase 61 U/L (73-393) Urine Collection Type Unknown Urine Color Yellow Urine Clarity Clear Urine pH 7.0 (<5.0-8.0) Urine Specific [place] 1.020 (1.000-1.030) Urine Protein 100 mg/dL (NEG-TRACE) Urine Glucose (UA) Negative mg/dL (NEG) Urine Ketones (Stick) 15 mg/dL (NEG) Urine Blood Negative (NEG) Urine Nitrite Negative (NEG) Urine Bilirubin Negative (NEG) Urine Urobilinogen Dipstick 1.0 mg/dL (0.2 mg/dL) Urine Leukocyte Esterase Trace (NEG) Urine RBC 1-2 /HPF (0-2) Urine WBC 1-4 /HPF (0-4) Urine Squamous Epithelial Cells Mod /LPF Urine Bacteria Few /HPF (0-FEW) Urine Mucus Marked /LPF Allergies: Coded Allergies: lisinopril (Verified Allergy, Unknown, 02/23/17) Medications: Current Medications Medications (Trade) Dose Ordered Sig/Chani Route PRN Reason Start Time Stop Time Status Last Admin Dose Admin Ketorolac Tromethamine (Toradol 15mg Vial) 15 mg 1X ONCE IVP 12/12/19 02:15 12/12/19 02:40 DC 12/12/19 02:33 Ondansetron HCl (Zofran) 4 mg 1X ONCE IVP 12/12/19 02:15 12/12/19 02:40 DC 12/12/19 02:32 Morphine Sulfate (Morphine Sulfate) 4 mg 1X ONCE IV 12/12/19 02:15 12/12/19 02:40 DC 12/12/19 02:33 Labetalol HCl (Normodyne Iv Push) 20 mg 1X ONCE IVP 12/12/19 03:15 12/12/19 03:16 DC 12/12/19 03:43 Sodium Chloride 500 ml @ 500 mls/hr 1X ONCE IV 12/12/19 03:30 12/12/19 04:29 DC 12/12/19 03:50 Morphine Sulfate (Morphine Sulfate) 4 mg 1X ONCE IV 12/12/19 04:45 12/12/19 04:46 DC 12/12/19 04:57 Multi-Ingredient Mouthwash/Gargle (Gi Cocktail) 20 ml 1X ONCE SWSW 12/12/19 05:00 12/12/19 05:23 DC 12/12/19 04:58 Sodium Chloride 1,000 ml @ 125 mls/hr Q8H IV 12/12/19 05:00 12/13/19 04:59 12/12/19 07:25 Acetaminophen (Tylenol) 650 mg PRN Q6HRS PRN PO Headaches, Temp > 101.5F 12/12/19 08:30 12/12/19 09:26 Imaging: Imaging: CT A/P Findings: Inherently limited evaluation without intravenous contrast. Lower chest: Mild atelectasis in the posterior medial right lower lobe. Heart is normal in size. Liver: Normal. Gallbladder/Biliary Tree: Normal. Pancreas: Normal. Spleen: Normal. Adrenal Glands: Normal. Kidneys/Ureters/Bladder: Kidneys are normal in size. No hydronephrosis or nephrolithiasis. Ureters and bladder are normal. A few small calcifications in the pelvis are favored to be phleboliths. Reproductive Organs: There are several calcified fibroids in the uterus. No adnexal mass. Stomach, small bowel, and colon: The stomach, small bowel, and colon are normal. Appendix is normal. Vasculature: No abdominal aortic aneurysm. Minimal calcified atherosclerosis. Lymph Nodes: No lymphadenopathy. Peritoneum and retroperitoneum: No free fluid or free air. Bones: There is severe facet arthrosis in the lumbar spine, greatest at L3-L4 through L5-S1. Moderate osteoarthrosis of the hips. Impression: 1. No urolithiasis or hydronephrosis. 2. Probable calcified fibroids in the uterus. 3. Severe lumbar facet arthrosis. PE: GEN: NAD HEENT: Atraumatic, PERRL LUNGS: CTAB HEART: RRR ABD: NABS, S/ND - vague/mild discomfort left mid abdomen/under left ribs EXTREMITY: No edema SKIN: No rashes, no jaundice NEURO/PSYCH: A & O 3 A/P: A/P: HTN, KING Left-sided pain Occasional heartburn CRC screen - UTD Stress at home -- Not sure this is a GI issue - ?MSK pain after transferring a patient by herself - ?n/v 2/2 accelerated HTN D/w Dr. Mcrae - hopeful to [place] soon. Observe from GI standpoint. GEREMIAS ROQUE Dec 12, 2019 09:53
[2019-12-12 13:28] VITALS: BP 188/94
--- NOTE | 2019-12-12 13:30 | NUR ---
Patient arrived to unit at approximately 1330. Admission assessments completed. Dr. Mcrae arrived to room during admission questions and discharged patient.
--- NOTE | 2019-12-12 13:44 | PDOC3 ---
Discharge Summary Visit Information Date of Admission: Dec 12, 2019 Date of Discharge: Dec 12, 2019 Final Diagnosis Problems Medical Problems: (1) Abdominal pain Status: Acute (2) Accelerated hypertension Status: Acute Brief Hospital Course Allergies Allergies Coded Allergies Type Severity Reaction Last Updated Verified lisinopril Allergy Intermediate 12/12/19 Yes Vital Signs Vital Signs Date Time Temp Pulse Resp B/P (MAP) Pulse Ox O2 Delivery O2 Flow Rate FiO2 12/12/19 13:10 98 Room Air 12/12/19 11:58 73 184/89 (120) 12/12/19 01:57 98.3 24 98.3 Lab Results Laboratory Tests Test 12/12/19 02:05 12/12/19 04:19 White Blood Count 7.7 x10^3/uL (4.0-11.0) Red Blood Count 4.80 x10^6/uL (3.50-5.40) Hemoglobin 12.5 g/dL (12.0-15.5) Hematocrit 37.9 % (36.0-47.0) Mean Corpuscular Volume 79 fL (79-100) Mean Corpuscular Hemoglobin 26 pg (25-35) Mean Corpuscular Hemoglobin Concent 33 g/dL (31-37) Red Cell Distribution Width 13.5 % (11.5-14.5) Platelet Count 319 x10^3/uL (140-400) Neutrophils (%) (Auto) 72 % (31-73) Lymphocytes (%) (Auto) 21 % (24-48) Monocytes (%) (Auto) 6 % (0-9) Eosinophils (%) (Auto) 0 % (0-3) Basophils (%) (Auto) 1 % (0-3) Neutrophils # (Auto) 5.5 x10^3/uL (1.8-7.7) Lymphocytes # (Auto) 1.6 x10^3/uL (1.0-4.8) Monocytes # (Auto) 0.4 x10^3/uL (0.0-1.1) Eosinophils # (Auto) 0.0 x10^3/uL (0.0-0.7) Basophils # (Auto) 0.1 x10^3/uL (0.0-0.2) Sodium Level 136 mmol/L (136-145) Potassium Level 3.6 mmol/L (3.5-5.1) Chloride Level 99 mmol/L (98-107) Carbon Dioxide Level 29 mmol/L (21-32) Anion Gap 8 (6-14) Blood Urea Nitrogen 8 mg/dL (7-20) Creatinine 0.7 mg/dL (0.6-1.0) Estimated GFR (Cockcroft-Gault) 101.9 BUN/Creatinine Ratio 11 (6-20) Glucose Level 147 mg/dL (70-99) Calcium Level 10.2 mg/dL (8.5-10.1) Total Bilirubin 0.4 mg/dL (0.2-1.0) Aspartate Amino Transf (AST/SGOT) 25 U/L (15-37) Alanine Aminotransferase (ALT/SGPT) 28 U/L (14-59) Alkaline Phosphatase 79 U/L (46-116) Total Protein 9.1 g/dL (6.4-8.2) Albumin 4.0 g/dL (3.4-5.0) Albumin/Globulin Ratio 0.8 (1.0-1.7) Lipase 61 U/L (73-393) Urine Collection Type Unknown Urine Color Yellow Urine Clarity Clear Urine pH 7.0 (<5.0-8.0) Urine Specific [place] 1.020 (1.000-1.030) Urine Protein 100 mg/dL (NEG-TRACE) Urine Glucose (UA) Negative mg/dL (NEG) Urine Ketones (Stick) 15 mg/dL (NEG) Urine Blood Negative (NEG) Urine Nitrite Negative (NEG) Urine Bilirubin Negative (NEG) Urine Urobilinogen Dipstick 1.0 mg/dL (0.2 mg/dL) Urine Leukocyte Esterase Trace (NEG) Urine RBC 1-2 /HPF (0-2) Urine WBC 1-4 /HPF (0-4) Urine Squamous Epithelial Cells Mod /LPF Urine Bacteria Few /HPF (0-FEW) Urine Mucus Marked /LPF Laboratory Tests Test 12/12/19 02:05 12/12/19 04:19 White Blood Count 7.7 x10^3/uL (4.0-11.0) Red Blood Count 4.80 x10^6/uL (3.50-5.40) Hemoglobin 12.5 g/dL (12.0-15.5) Hematocrit 37.9 % (36.0-47.0) Mean Corpuscular Volume 79 fL (79-100) Mean Corpuscular Hemoglobin 26 pg (25-35) Mean Corpuscular Hemoglobin Concent 33 g/dL (31-37) Red Cell Distribution Width 13.5 % (11.5-14.5) Platelet Count 319 x10^3/uL (140-400) Neutrophils (%) (Auto) 72 % (31-73) Lymphocytes (%) (Auto) 21 % (24-48) Monocytes (%) (Auto) 6 % (0-9) Eosinophils (%) (Auto) 0 % (0-3) Basophils (%) (Auto) 1 % (0-3) Neutrophils # (Auto) 5.5 x10^3/uL (1.8-7.7) Lymphocytes # (Auto) 1.6 x10^3/uL (1.0-4.8) Monocytes # (Auto) 0.4 x10^3/uL (0.0-1.1) Eosinophils # (Auto) 0.0 x10^3/uL (0.0-0.7) Basophils # (Auto) 0.1 x10^3/uL (0.0-0.2) Sodium Level 136 mmol/L (136-145) Potassium Level 3.6 mmol/L (3.5-5.1) Chloride Level 99 mmol/L (98-107) Carbon Dioxide Level 29 mmol/L (21-32) Anion Gap 8 (6-14) Blood Urea Nitrogen 8 mg/dL (7-20) Creatinine 0.7 mg/dL (0.6-1.0) Estimated GFR (Cockcroft-Gault) 101.9 BUN/Creatinine Ratio 11 (6-20) Glucose Level 147 mg/dL (70-99) Calcium Level 10.2 mg/dL (8.5-10.1) Total Bilirubin 0.4 mg/dL (0.2-1.0) Aspartate Amino Transf (AST/SGOT) 25 U/L (15-37) Alanine Aminotransferase (ALT/SGPT) 28 U/L (14-59) Alkaline Phosphatase 79 U/L (46-116) Total Protein 9.1 g/dL (6.4-8.2) Albumin 4.0 g/dL (3.4-5.0) Albumin/Globulin Ratio 0.8 (1.0-1.7) Lipase 61 U/L (73-393) Urine Collection Type Unknown Urine Color Yellow Urine Clarity Clear Urine pH 7.0 (<5.0-8.0) Urine Specific [place] 1.020 (1.000-1.030) Urine Protein 100 mg/dL (NEG-TRACE) Urine Glucose (UA) Negative mg/dL (NEG) Urine Ketones (Stick) 15 mg/dL (NEG) Urine Blood Negative (NEG) Urine Nitrite Negative (NEG) Urine Bilirubin Negative (NEG) Urine Urobilinogen Dipstick 1.0 mg/dL (0.2 mg/dL) Urine Leukocyte Esterase Trace (NEG) Urine RBC 1-2 /HPF (0-2) Urine WBC 1-4 /HPF (0-4) Urine Squamous Epithelial Cells Mod /LPF Urine Bacteria Few /HPF (0-FEW) Urine Mucus Marked /LPF Brief Hospital Course Ms. Agustin is a 64 old female who presented with hypertensive urgency, and left lower quadrant abdominal pain. CT abdomen pelvis was largely benign except for evidence of calcified fibroid uterus. She was recommended to follow-up with her PCP for referral to [facility] to discuss surgical management. Patient was stable for discharge home after observation for blood pressure management. Discharge Information Condition at Discharge: Improved Follow Up: Weeks Disposition/Orders: D/C to Home Scheduled Benazepril Hcl (Lotensin) 20 Mg Tablet, 1 TAB PO DAILY for 30 Days, #30 Ref 0 Prescribed by: MELISA SALEEM D.O. on 06/21/192123 Last Action: Converted on 12/12/19832 by CHERI MARIO MD Clonidine Hcl (Clonidine Hcl) 0.1 Mg Tablet, 1 TAB PO QHS, #14 Ref 0 Prescribed by: Janet Campos APRN on 02/23/17 9007 Last Action: Continued on 12/12/19832 by CHERI MARIO MD Scheduled PRN Clonazepam (Clonazepam ) 0.5 Mg Tablet, 0.5 MG PO BID PRN for ANXIETY, #10 Prescribed by: MELISA SALEEM D.O. on 06/21/192123 Last Action: Continued on 12/12/19832 by CHERI MARIO MD Justicifation of Admission Dx: Justifications for Admission: Justification of Admission Dx: Yes (Hypertensive urgency, intractable pain) CHERI MARIO MD Dec 12, 2019 13:44
[2019-12-12] MEDS ORDERED: LABETALOL 20 MG/4 ML DISP.SYRIN. IVP PRN (13:45)
[2019-12-12] MEDS ORDERED: LOSA100T14 PO (13:58)
[2019-12-12] MEDS ORDERED: CLON0.1T PO (13:58)
[2019-12-12 14:15] VITALS: BP 167/90
--- NOTE | 2019-12-12 15:30 | NUR ---
Discharge Note: BERNARDO MILLER Discharge instructions and discharge home medications reviewed with Patient and a copy given. All questions have been answered and understanding verbalized. The following instructions and handouts were given: information about medications, follow up appointments, etc. Discontinued lines and drains: IV line in right AC removed, catheter tip intact. Patient discharged to home with self care with son, wheelchair used for mobility to discharge vehicle.
[2019-12-12] MEDS ORDERED: cloNIDine HCL 0.1 MG TABLET PO SCH (21:00)
--- NOTE | 2019-12-22 12:09 | NUR ---
Stop time for NaCl started at 0350 on 12/11 is 0450.
== END 2019-12-12 15:30 | disposition home or self-care (01) ==
LOC: ER 01:45 → ED HOLD 04:55 → 4 NORTH 06:28
PROVIDERS: ADMIT Family Medicine; ATTEND Family Medicine
DX: D25.9 Leiomyoma of uterus, unspecified (principal); R10.32 Left lower quadrant pain; I16.0 Hypertensive urgency; I10 Essential (primary) hypertension; F43.9 Reaction to severe stress, unspecified; R51.9 Headache, unspecified; R12 Heartburn
CPT/HCPCS: 36415; 74176; 80053; 81001; 83690; 85025; 87086; 93005; 96361; 96374; 96375; 96376; 99285; G0378; J1885; J2270; J2405; J3490; J7030; J7040; G0379